=== PATIENT | male | born 2000 | race Caucasian/White ===

== ENCOUNTER 2018-10-23 05:26 | Day surgery (SDC) | payer OTHER ==
[2018-10-22 13:51] VITALS: BMI 33.2
--- NOTE | 2018-10-23 09:39 | HP ---
Satellite H - Chief Complaint Chief Complaint: right hand fx - Past Medical History Allergies/Adverse Reactions: Allergies Allergy/AdvReac Type Severity Reaction Status Date / Time No Known Allergies Allergy Verified 10/22/18 13:46 - Current Medications Current Medications: Home Medications Medication Instructions Recorded Oxycodone HCl/Acetaminophen 1 - 2 tab PO Q6H #30 tab MDD 6 10/23/18 [Percocet 5-325 mg Tablet] Satellite Physical Exam - Physical Examination General Appearance: Well Nourished, Well Developed, Alert & Oriented x3 ENT: Clear Lung: Normal air movement Heart: Regular rate & rhythm Extremities: Other (right hand- splnt intact, + ttp, + swelling, nvi xrays show displaced 4th and 5th metacarpal fxs) Neurological: Intact, Alert, Oriented Satellite Impression/Plan - Impression/Plan Impression: right 4th and 5th metacarpal fx Operative Procedure: right 4th and 5th metacarpal orif Date to be Performed: 10/23/18
[2018-10-23] MEDS ORDERED: BUPIVACAINE HCL/PF 0.5% (5MG/ML) 10 ML VIAL ONE (10:44)
[2018-10-23] MEDS ORDERED: DEXAMETHASONE SOD PHOSPHATE/PF 10 MG/ML SDV ONE (10:44)
[2018-10-23] MEDS ORDERED: MIDAZOLAM HCL 2 MG/2 ML SINGLE DOSE VIAL ONE ×2 (10:45)
[2018-10-23] MEDS ORDERED: oxyCODONE HCL 5 MG TABLET PO PRN ×2 (10:55)
[2018-10-23] MEDS ORDERED: ONDANSETRON 4 MG/2 ML VIAL IVPUSH PRN (10:55)
[2018-10-23] MEDS ORDERED: LACTATED RINGERS SOLUTION 1,000 ML IV SCH (11:00)
[2018-10-23] MEDS ORDERED: ceFAZolin SODIUM 1 GM VIAL ONE (13:26)
[2018-10-23] MEDS ORDERED: DEXAMETHASONE SOD PHOSPHATE 4 MG/1 ML VIAL ONE (13:26)
[2018-10-23] MEDS ORDERED: SODIUM CHLORIDE 0.9% P/F 10 ML VIAL IJ ONE (13:26)
[2018-10-23] MEDS ORDERED: LIDOCAINE HCL/PF 2% SDV 5ML VIAL ONE (13:26)
[2018-10-23] MEDS ORDERED: KETOROLAC TROMETHAMINE 30 MG/1 ML VIAL ONE (13:26)
[2018-10-23] MEDS ORDERED: PROPOFOL 20 ML ONE (13:29)
[2018-10-23] MEDS ORDERED: ceFAZolin SODIUM 1 GM VIAL IVPB ONE (13:55)
--- NOTE | 2018-10-23 15:08 | OP ---
Operative Note - Note: Operative Date: 10/23/18 Pre-Operative Diagnosis: right 4th and 5th metacarpal fractures Operation: ORIF right 4th and 5th metacarpals Implants: .045 K-wires x 4 (temporary) Surgeon: Srini Alva Anesthesiologist/BUILDING MAINTENANCE TECHNICIAN: Alexander Gant Anesthesia: General, Local Estimated Blood Loss (mls): 0 Drains, Volume Out (mls): 0 Blood Volume Replaced (mls): 0 Fluid Volume Replaced (mls): 700 Operative Report Dictated: Yes
[2018-10-23 16:06] VITALS: PULSE 60
[2018-10-23 16:58] VITALS: BP 119/69; TEMP 97.5
--- NOTE | 2018-10-24 10:48 | OP ---
DATE OF OPERATION: 10/23/2018 PREOPERATIVE DIAGNOSIS: Right hand 4th and 5th metacarpal fractures. POSTOPERATIVE DIAGNOSIS: Right hand 4th and 5th metacarpal fractures. PROCEDURE: Right hand 4th and 5th metacarpal ORIF/open reduction, internal fixation. SURGEON: Srini Alva MD ASSISTANTS: None. SNOW SHOVELER: Alexander Gant CRNA ANESTHESIA: LMA anesthesia with a right interscalene block. DRAINS: None. COMPLICATIONS: None. FLUID REPLACEMENT: 700 mL. BLOOD LOSS: None. BLOOD GIVEN: None. INDICATIONS: This patient is a 18-year-old male with a preoperative diagnosis of acute right 4th and 5th metacarpal shaft fractures. Fractures were displaced and angulated. After understanding the potential risks, complications, alternatives, and benefits of surgery versus nonsurgical treatment, the patient elected to undergo this procedure. DESCRIPTION OF PROCEDURE: The patient was brought to the operating room. Peripheral IV placed. IV sedation given. IV Ancef, 1 g, was given. LMA anesthesia was induced after an upper extremity regional block was performed. The right upper extremity was then prepped and draped in sterile fashion. X-rays were taken with a C-arm fluoroscopy documenting complete displacement of the 4th metacarpal fracture and much more angulation of the 5th metacarpal fracture than was apparent in the office. Then, the right upper extremity was elevated, exsanguinated with an Esmarch bandage, and tourniquet inflated to 250 mmHg. A dorsal longitudinal incision was marked out and made with a No. 15 scalpel blade over the 4th metacarpal. Subcutaneous hemostasis was achieved with a bipolar cautery. Dissection done down to the dorsal aspect of the 4th metacarpal with the Littler scissors. I was able to split the connective tissue between the extensor tendons, not disrupt the tendons themselves. I then got down to the 4th metacarpal. A Weitlaner retractor was placed into the wound for retraction. The area was irrigated and washed out. A small curette was used to remove muscle and hematoma debrided from the fracture site. The fracture was 100% displaced and actually was difficult to reduce, to use 2 alligator clamps to reduce the fracture. Then, using the retrograde technique, I put in two 0.045 K-wires from proximal to distal going out around the metacarpal head. I left just the tips prominent, the proximal aspect of the distal fragment. X-rays were taken documenting excellent reduction in all planes. Then, I advanced the K-wires from a distal to proximal direction across the fracture site through the proximal fragment and engaged in the proximal cortex of the 4th metacarpal into the carpal bones. Overall both K-wires looked quite good. I like the position in all planes. So, therefore, the K-wires were bent, cut, and pin caps applied. Then, in a completely percutaneous technique, I put across two 0.045 K-wires in a retrograde fashion across the 5th metacarpal fracture, holding it in a reduced position while doing so. Overall, those also came together quite nicely. X-rays were taken in multiple planes. The K-wires were then bent, cut, and pin caps applied. I irrigated the area out. Closure was done with 4-0 undyed Vicryl in the deep dermal layer, and final skin reapproximation was done with a running subcuticular 4-0 Biosyn stitch. The area was then washed and dried and covered with Steri-Strips, Xeroform at the base of the pins, 4x4 gauze, fluffs between the fingers, Webril, and a 5-inch Ortho-Glass splint was used in an ulnar gutter splint fashion, wrapped with Guero and Coban. The tourniquet was taken down after a total tourniquet time of 49 minutes. There were no complications during the case. The patient tolerated the procedure quite well and was brought to the ambulatory recovery room in stable condition. Papi [id number]
== END 2018-10-23 16:55 | disposition home or self-care (01) ==
LOC: JASU-SURG 05:26
PROVIDERS: ATTEND Orthopaedic Surgery
PROC: 0PSP04Z Reposition Right Metacarpal with Internal Fixation Device, Open Approach (ICD-10-PCS; 2018-10-23)
PROC: 0PSP04Z Reposition Right Metacarpal with Internal Fixation Device, Open Approach (ICD-10-PCS; principal; 2018-10-23 12:30)
DX: S62.324A Displaced fracture of shaft of fourth metacarpal bone, right hand, initial encounter for closed fracture (principal); S62.326A Displaced fracture of shaft of fifth metacarpal bone, right hand, initial encounter for closed fracture; X58.XXXA Exposure to other specified factors, initial encounter; Y93.9 Activity, unspecified; Y92.9 Unspecified place or not applicable; Y99.9 Unspecified external cause status
CPT/HCPCS: 76000-TC-FY; 94760

== ENCOUNTER 2022-02-09 14:32 | Emergency (ER) | payer OTHER ==
[2022-02-09 14:44] VITALS: TEMP 97.3; BMI 31.7
[2022-02-09] MEDS ORDERED: ONDANSETRON 4 MG/2 ML VIAL IVPUSH ONE (15:51)
[2022-02-09] MEDS ORDERED: SODIUM CHLORIDE 1,000 ML IV STA (15:51)
[2022-02-09] MEDS ORDERED: ACETAMINOPHEN 1000 MG/100 ML BAG IVPB ONE (15:51)
[2022-02-09] MEDS ORDERED: FAMOTIDINE 20 MG/50 ML IVPB 20 MG/50 ML MG IVPB ONE ×2 (16:24→17:31)
[2022-02-09] MEDS ORDERED: ONDANSETRON 4 MG/2 ML VIAL ONE (17:31)
[2022-02-09] MEDS ORDERED: ACETAMINOPHEN INJECTION 100 ML IVPB ONE (17:31)
[2022-02-09 17:35] LABS: BASO % 0.1 % (0-2.0); HEMATOCRIT 45.4 % (35.4-49); LYMPH % 1.3 % (8-40); MCH 28.4 pg (25.7-33.7); MCHC 33.1 g/dl (32.0-35.9); MEAN CELL VOLUME 85.6 fl (80-96); MEAN PLT VOLUME 6.6 fl (7.5-11.1); NEUT % 95.6 % (42.8-82.8); PLATELET COUNT 362 10^3/uL (134-434); RBC 5.31 M/mm3 (4.00-5.60); RDW 13.7 % (11.9-15.9); WHITE BLOOD COUNT 24.2 K/mm3 (4.0-10.0)
[2022-02-09 18:26] LABS: ALBUMIN 4.7 g/dl (3.4-5.0); BILIRUBIN,TOTAL 0.8 mg/dL (0.2-1); CALCIUM 9.3 mg/dL (8.5-10.1); CREATININE 0.7 mg/dL (0.55-1.3); TOT PROT 8.2 g/dl (6.4-8.2)
[2022-02-09 22:06] VITALS: BP 132/68; PULSE 88
== END 2022-02-09 22:06 | disposition home or self-care (01) ==
LOC: JER 14:32
PROC: 3E0333Z Introduction of Anti-inflammatory into Peripheral Vein, Percutaneous Approach (ICD-10-PCS; principal; 2022-02-09)
PROC: 3E033GC Introduction of Other Therapeutic Substance into Peripheral Vein, Percutaneous Approach (ICD-10-PCS; 2022-02-09)
PROC: 3E033GC Introduction of Other Therapeutic Substance into Peripheral Vein, Percutaneous Approach (ICD-10-PCS; 2022-02-09)
PROC: 3E0337Z Introduction of Electrolytic and Water Balance Substance into Peripheral Vein, Percutaneous Approach (ICD-10-PCS; 2022-02-09)
DX: R11.2 Nausea with vomiting, unspecified (principal)
CPT/HCPCS: 36415; 74177-TC; 76705-TC; 80053; 83690; 85025; 99285-25; Q9967